=== PATIENT | female | born 1970 | race Caucasian/White ===

== ENCOUNTER 2023-08-13 11:44 | Emergency (ER) | payer BC ==
[~2023-08-13] VITALS: Ht 180.3 cm; Wt 49.9 kg
[2023-08-13] MEDS: IV NS 0.9% 500 ML BAG IV ONE (12:34)
[2023-08-13 13:21] LABS: CALCIUM, SERUM 10.3 mg/dL (8.5-10.1); POTASSIUM 3.6 mmol/L (3.5-5.1)
[2023-08-13 13:22] LABS: BASOPHILS % (AUTO) 1.2 % (0.0-2.0); EOSINOPHILS % (AUTO) 0.7 % (0.0-6.0); HEMATOCRIT 46 % (33-45); HEMOGLOBIN 15.9 g/dL (11.5-14.8); LYMPHOCYTES % (AUTO) 29.3 % (20.0-44.0); MEAN CORPUSCULAR HEMOGLOBIN 32 PG (26.0-33.0); MEAN CORPUSCULAR HGB CONC 35 g/dl (31.0-36.0); MEAN CORPUSCULAR VOLUME 93 fL (82-100); MONOCYTES # (AUTO) 0.3 K/uL (0.1-1.30); MONOCYTES % (AUTO) 9.7 % (2.0-12.0); NEUTROPHILS % (AUTO) 59.1 % (43.0-81.0); PLATELET COUNT (AUTO) 219 K/uL (150-450); RED BLOOD CELL COUNT(AUTO) 4.94 MIL/uL (4.0-5.2); WHITE BLOOD COUNT (AUTO) 3.4 K/uL (4.3-11.0)
[2023-08-13 13:49] VITALS: BP 144/83; TEMP 98.2; O2SAT 99
== END 2023-08-13 13:49 | disposition home or self-care (01) ==
LOC: ER 11:44
DX: R20.2 Paresthesia of skin (principal); R06.02 Shortness of breath
CPT/HCPCS: 36415; 70450-TC; 80048-TC; 82962-TC; 85025-TC

== ENCOUNTER 2023-08-14 05:00 | Emergency (ER) | payer BC ==
[~2023-08-14] VITALS: Ht 172.7 cm; Wt 50.3 kg
[2023-08-14 06:00] VITALS: TEMP 97.8
[2023-08-14 06:29] VITALS: BP 119/92; O2SAT 100
== END 2023-08-14 06:29 | disposition home or self-care (01) ==
LOC: ER 05:01
DX: F43.20 Adjustment disorder, unspecified (principal)